=== PATIENT | female | born 1935 | race African-American/Black ===

== ENCOUNTER 2016-05-23 04:18 | Emergency (ER) | payer MEDICARE, OTHER ==
[~2016-05-23] VITALS: Ht 172.7 cm; Wt 81.0 kg
[~2016-05-23 04:18] MED LIST: AMLO10TA80 PO; ASPI-785; CALC-4 PO; CLOB60CR4 TP; DOCU-138 PO; FERR-63 PO; GLYB5TAB7 PO; LEVO100T9 PO; MECL-109 PO; MEMA10TA11 PO; METF1000; TRAM50TA3 PO
[2016-05-23] MEDS ORDERED: ONDANSETRON HCL 4MG/2ML VIAL IV STA (04:40)
[2016-05-23] MEDS ORDERED: MORPHINE SULFATE 4 MG/ML CPJ (NOT FOR IM USE) IV STA (04:40)
[2016-05-23 04:58] LABS: DIFFERENTIAL COMMENT 0; EOSINOPHILS % 5.2 % (0.0-5.0); HEMATOCRIT. 35.5 % (36.0-48.0); HEMOGLOBIN. 10.8 g/dL (12.0-16.0); LYMPHOCYTES % 10.5 % (20.0-50.0); MEAN CORPUSCULAR HEMOGLOBIN 21.5 pg (28.0-32.0); MEAN CORPUSCULAR HGB CONC 30.4 g/dL (31.0-37.0); MEAN CORPUSCULAR VOLUME 70.8 fL (81.0-99.0); MONOCYTES % 5.4 % (2.0-8.0); NEUTROPHILS % 77.9 % (40.0-76.0); PLATELET 299 x1000/uL (130-400); RED BLOOD CELL COUNT 5.01 mill/uL (4.2-5.4); RED CELL DISTRIBUTION WIDTH 20.2 % (11.6-14.6); WHITE BLOOD COUNT 10.8 x1000/uL (4.5-11.0)
[2016-05-23 05:01] LABS: CHLORIDE 100 mEq/L (98-107); INDEX HEMOLYSI 1 (1-3); INDEX ICTERIC 1 (1-4); INDEX LIPEMIC 1 (1-3)
[2016-05-23 05:09] LABS: ALANINE AMINOTRANSFERASE 12 IU/L (13-61); ALBUMIN 3.3 g/dL (3.4-5.0); ANION GAP 12; CALCIUM 9.1 mg/dL (8.5-10.1); CARBON DIOXIDE 34 mEq/L (21-32); UREA NITROGEN BLOOD 18 mg/dL (7-21); eGFR > 60 mL/min (>60)
[2016-05-23] MEDS ORDERED: HYDROCODONE/ACETAMINOPHEN 5/325MG TABLET PO ONE (06:30)
[2016-05-23] MEDS ORDERED: KETOROLAC 30MG/ML VIAL IV ONE (06:30)
[2016-05-23 06:59] LABS: CLARITY URINE CLEAR (CLEAR); COLOR URINE YELLOW (YELLOW); GLUCOSE URINE 1+ (NEGATIVE); KETONES URINE NEGATIVE (NEGATIVE); LEUKOCYTE ESTERASE URINE NEGATIVE (NEGATIVE); NITRITE URINE NEGATIVE (NEGATIVE); OCCULT BLOOD URINE NEGATIVE (NEGATIVE); PH URINE 7.5 (4.5-8.0); PROTEIN URINE TRACE (NEGATIVE); SPECIFIC GRAVITY URINE 1.012 (1.005-1.030); UROBILINOGEN URINE 0.2 E.U./dL (0.2-1.0)
[2016-05-23 07:16] LABS: SQUAMOUS EPITHELIAL CELL URINE FEW /lpf (RARE/1+)
[2016-05-23 07:26] LABS: BACTERIA URINE 3+; RBC URINE 0-2 /hpf (0-2)
[2016-05-23 08:00] VITALS: BP 173/87
[2016-05-23] MEDS ORDERED: LEVO125T8 PO (18:12)
[2016-05-23] MEDS ORDERED: ASPI-1035 PO (18:16)
== END 2016-05-23 08:15 | disposition home or self-care (01) ==
LOC: ER 04:55
DX: S30.0XXA Contusion of lower back and pelvis, initial encounter (principal); W01.0XXA Fall on same level from slipping, tripping and stumbling without subsequent striking against object, initial encounter; Y93.89 Activity, other specified; Y92.89 Other specified places as the place of occurrence of the external cause; M25.552 Pain in left hip; M25.551 Pain in right hip; N39.0 Urinary tract infection, site not specified; E11.65 Type 2 diabetes mellitus with hyperglycemia; I10 Essential (primary) hypertension; E86.0 Dehydration; E87.6 Hypokalemia; R00.0 Tachycardia, unspecified; D53.9 Nutritional anemia, unspecified; M47.896 Other spondylosis, lumbar region; Z79.82 Long term (current) use of aspirin; Z79.84 Long term (current) use of oral hypoglycemic drugs; Z79.899 Other long term (current) drug therapy
CPT/HCPCS: 36415; 72131; 73521; 80053; 81001; 85025; 85610; 93005; 96374; 96375; 99285; J1885; J2270; J2405

== ENCOUNTER 2016-05-23 09:50 | Inpatient (IN) | payer MEDICARE, OTHER ==
[~2016-05-23] VITALS: Ht 170.2 cm; Wt 88.5 kg
[2016-05-23] MEDS ORDERED: LORAZEPAM 2MG/ML CPJ IV PRN (13:15)
[2016-05-23] MEDS ORDERED: ACETAMINOPHEN 325MG TABLET PO PRN (13:15)
[2016-05-23] MEDS ORDERED: CLONIDINE 0.1MG TABLET PO PRN (13:15)
[2016-05-23] MEDS ORDERED: POTASSIUM CHLORIDE 40MEQ/30ML UDC PO ONE (13:15)
[2016-05-23] MEDS ORDERED: DIPHENHYDRAMINE 50MG/ML VIAL IV PRN (13:15)
[2016-05-23 13:17] LABS: HEMATOCRIT. 33.5 % (36.0-48.0); HEMOGLOBIN. 10.3 g/dL (12.0-16.0); MEAN CORPUSCULAR HEMOGLOBIN 21.8 pg (28.0-32.0); MEAN CORPUSCULAR HGB CONC 30.6 g/dL (31.0-37.0); MEAN CORPUSCULAR VOLUME 71.2 fL (81.0-99.0); MEAN PLATELET VOLUME 8.2 fl (7.4-10.4); PLATELET 286 x1000/uL (130-400); RED BLOOD CELL COUNT 4.71 mill/uL (4.2-5.4); RED CELL DISTRIBUTION WIDTH 20.3 % (11.6-14.6); WHITE BLOOD COUNT 10.7 x1000/uL (4.5-11.0)
[2016-05-23 13:22] LABS: CHLORIDE 100 mEq/L (98-107); INDEX HEMOLYSI 1 (1-3); INDEX ICTERIC 1 (1-4); INDEX LIPEMIC 1 (1-3)
[2016-05-23 13:27] LABS: DIFFERENTIAL COMMENT 1
[2016-05-23 13:31] LABS: ALANINE AMINOTRANSFERASE 11 IU/L (13-61); ALBUMIN 3.2 g/dL (3.4-5.0); ANION GAP 11; CALCIUM 9.1 mg/dL (8.5-10.1); CARBON DIOXIDE 35 mEq/L (21-32); UREA NITROGEN BLOOD 20 mg/dL (7-21); eGFR > 60 mL/min (>60)
[2016-05-23] MEDS ORDERED: POTASSIUM CHLORIDE 20MEQ TABLET SR PO NR (13:59)
[2016-05-23] MEDS: SODIUM CHLORIDE 0.45% 1,000 ML IV SCH (14:00)
[2016-05-23 14:26] LABS: ANISOCYTOSIS 2+; PLATELET ESTIMATE NORMAL
[2016-05-23 15:10] VITALS: BP_SYST 152; BP_SYST 154; BP_DIAS 71
[2016-05-23] MEDS ORDERED: NA PHOS,M-B/NA PHOS,DI-BA ENEMA 118ML PR PRN (15:45)
[2016-05-23] MEDS ORDERED: DEXTROSE 50% WATER 50ML SYRINGE IV PRN (15:45)
[2016-05-23] MEDS ORDERED: HYDROMORPHONE HCL/PF 2MG/ML CPJ IV PRN (15:45)
[2016-05-23] MEDS ORDERED: MAGNESIUM/ALUMINUM HYDROXIDE/SIMETHICONE 30ML UDC PO PRN (15:46)
[2016-05-23] MEDS ORDERED: GUAIFENESIN 200MG/10ML SUGAR FREE UDC PO PRN (15:48)
[2016-05-23] MEDS ORDERED: ONDANSETRON HCL 4MG/2ML VIAL IV PRN (15:48)
[2016-05-23] MEDS: ENOXAPARIN 40MG/0.4ML SYR SUBCUT SCH (16:46)
[2016-05-23] MEDS: BLOOD SUGAR DIAGNOSTIC STRIP TEST SCH ×2 (16:46→20:40)
[2016-05-23] MEDS: INSULIN LISPRO 100 UNITS/ML SUBCUT SCH ×2 (16:49→20:45)
[2016-05-23] MEDS ORDERED: MECLIZINE 25MG TABLET PO PRN (18:00)
[2016-05-23] MEDS ORDERED: LEVO125T8 PO (18:12)
[2016-05-23] MEDS ORDERED: ASPI-1035 PO (18:16)
[2016-05-23 20:00] VITALS: BP 146/77
[2016-05-23 23:36] VITALS: BP 140/91
[2016-05-24 00:22] VITALS: BP 140/91
[2016-05-24 04:00] VITALS: BP 132/70
[2016-05-24] MEDS: BLOOD SUGAR DIAGNOSTIC STRIP TEST SCH ×4 (06:22→20:14)
[2016-05-24] MEDS: INSULIN LISPRO 100 UNITS/ML SUBCUT SCH ×4 (06:22→20:58)
[2016-05-24] MEDS: LEVOTHYROXINE SODIUM 125MCG TABLET PO SCH (06:26)
[2016-05-24 06:56] LABS: BASOPHILS % 1.2 % (0.0-2.0); DIFFERENTIAL COMMENT 0; EOSINOPHILS % 6.2 % (0.0-5.0); HEMATOCRIT. 29.9 % (36.0-48.0); HEMOGLOBIN. 9.1 g/dL (12.0-16.0); LYMPHOCYTES % 17.4 % (20.0-50.0); MEAN CORPUSCULAR HEMOGLOBIN 21.4 pg (28.0-32.0); MEAN CORPUSCULAR HGB CONC 30.5 g/dL (31.0-37.0); MEAN CORPUSCULAR VOLUME 70.2 fL (81.0-99.0); MEAN PLATELET VOLUME 7.6 fl (7.4-10.4); MONOCYTES % 7.4 % (2.0-8.0); NEUTROPHILS % 67.8 % (40.0-76.0); PLATELET 276 x1000/uL (130-400); RED BLOOD CELL COUNT 4.25 mill/uL (4.2-5.4); RED CELL DISTRIBUTION WIDTH 20.5 % (11.6-14.6); WHITE BLOOD COUNT 6.6 x1000/uL (4.5-11.0)
[2016-05-24 08:00] VITALS: BP 131/84
[2016-05-24 08:19] LABS: ALANINE AMINOTRANSFERASE 8 IU/L (13-61); ALBUMIN 2.6 g/dL (3.4-5.0); ANION GAP 12; CALCIUM 8.5 mg/dL (8.5-10.1); CARBON DIOXIDE 31 mEq/L (21-32); CHLORIDE 101 mEq/L (98-107); HDL CHOLESTEROL 43 mg/dL (40-59); INDEX HEMOLYSI 1 (1-3); INDEX ICTERIC 1 (1-4); INDEX LIPEMIC 1 (1-3); LDL CHOLESTEROL 122 mg/dL (5-100); T4 FREE 1.29 ng/dL (0.76-1.46); TRIGLYCERIDE 181 mg/dL (0-150); UREA NITROGEN BLOOD 24 mg/dL (7-21); eGFR > 60 mL/min (>60)
[2016-05-24 08:21] LABS: THYROID STIMULATING HORMONE 0.82 uIU/mL (0.36-3.74)
[2016-05-24] MEDS: GLYBURIDE 5MG TABLET PO SCH ×2 (09:47→16:12)
[2016-05-24] MEDS: ASPIRIN 81MG EC TABLET PO SCH (09:48)
[2016-05-24] MEDS: AMLODIPINE 10MG TABLET PO SCH (09:48)
[2016-05-24] MEDS: CALCIUM CARBONATE/VITAMIN D3 500MG TABLET PO SCH ×2 (09:48→16:08)
[2016-05-24 12:00] VITALS: BP 132/79
[2016-05-24 16:00] VITALS: BP 136/63
[2016-05-24] MEDS: ENOXAPARIN 40MG/0.4ML SYR SUBCUT SCH (16:08)
[2016-05-24] MEDS: LEVOFLOXACIN 500MG TABLET PO SCH (18:16)
[2016-05-24] MEDS: HYDROCODONE/ACETAMINOPHEN 5/325MG TABLET PO PRN (18:17)
[2016-05-24 20:00] VITALS: BP 140/75
[2016-05-24] MEDS: SODIUM CHLORIDE 0.45% 1,000 ML IV SCH (21:28)
[2016-05-25] VITALS: BP 119/73
[2016-05-25 04:00] VITALS: BP 142/73
[2016-05-25] MEDS: HYDROCODONE/ACETAMINOPHEN 5/325MG TABLET PO PRN (06:11)
[2016-05-25] MEDS: BLOOD SUGAR DIAGNOSTIC STRIP TEST SCH ×4 (06:13→21:01)
[2016-05-25] MEDS: LEVOTHYROXINE SODIUM 125MCG TABLET PO SCH (06:14)
[2016-05-25] MEDS: INSULIN LISPRO 100 UNITS/ML SUBCUT SCH ×4 (06:22→21:08)
[2016-05-25] MEDS ORDERED: IOHEXOL-350 100 ML BOTTLE ONE (06:48)
[2016-05-25] MEDS ORDERED: SODIUM CHLORIDE 0.9% 10ML VIAL ONE (06:48)
[2016-05-25 06:56] LABS: DIFFERENTIAL COMMENT 0; EOSINOPHILS % 6.7 % (0.0-5.0); HEMOGLOBIN. 8.8 g/dL (12.0-16.0); LYMPHOCYTES % 15.1 % (20.0-50.0); MEAN CORPUSCULAR HEMOGLOBIN 22.1 pg (28.0-32.0); MEAN CORPUSCULAR HGB CONC 31.3 g/dL (31.0-37.0); MEAN CORPUSCULAR VOLUME 70.4 fL (81.0-99.0); MEAN PLATELET VOLUME 7.8 fl (7.4-10.4); MONOCYTES % 8.4 % (2.0-8.0); NEUTROPHILS % 68.8 % (40.0-76.0); PLATELET 261 x1000/uL (130-400); RED BLOOD CELL COUNT 3.98 mill/uL (4.2-5.4); RED CELL DISTRIBUTION WIDTH 20.2 % (11.6-14.6); WHITE BLOOD COUNT 6.4 x1000/uL (4.5-11.0)
[2016-05-25 07:26] LABS: ANION GAP 12; CALCIUM 8.4 mg/dL (8.5-10.1); CARBON DIOXIDE 30 mEq/L (21-32); CHLORIDE 102 mEq/L (98-107); INDEX HEMOLYSI 1 (1-3); INDEX ICTERIC 1 (1-4); INDEX LIPEMIC 1 (1-3); TROPONIN I < 0.02 ng/mL (0.00-0.04); UREA NITROGEN BLOOD 16 mg/dL (7-21); eGFR > 60 mL/min (>60)
[2016-05-25 08:00] VITALS: BP 130/89
[2016-05-25] MEDS: GLYBURIDE 5MG TABLET PO SCH ×2 (08:06→16:42)
[2016-05-25] MEDS: ASPIRIN 81MG EC TABLET PO SCH (08:06)
[2016-05-25] MEDS: CALCIUM CARBONATE/VITAMIN D3 500MG TABLET PO SCH ×2 (08:06→16:42)
[2016-05-25] MEDS: AMLODIPINE 10MG TABLET PO SCH (08:06)
[2016-05-25] MEDS ORDERED: POTASSIUM CHLORIDE 20MEQ TABLET SR PO NR (09:45)
[2016-05-25] MEDS: LEVOFLOXACIN 500MG TABLET PO SCH (10:35)
[2016-05-25 11:54] VITALS: BP 132/65
[2016-05-25 16:00] VITALS: BP 146/64
[2016-05-25 20:00] VITALS: BP 142/71
[2016-05-25] MEDS: ATORVASTATIN CALCIUM 10MG TABLET PO SCH (21:07)
[2016-05-26] VITALS: BP 136/72
[2016-05-26 04:00] VITALS: BP 154/74
[2016-05-26 06:05] LABS: D-DIMER 2.65 mg/L FEU (<0.50); PROTHROMBIN TIME 10.5 sec
[2016-05-26 06:29] LABS: ANION GAP 16; CALCIUM 8.9 mg/dL (8.5-10.1); CARBON DIOXIDE 28 mEq/L (21-32); CHLORIDE 100 mEq/L (98-107); INDEX HEMOLYSI 1 (1-3); INDEX ICTERIC 1 (1-4); INDEX LIPEMIC 1 (1-3); UREA NITROGEN BLOOD 12 mg/dL (7-21); eGFR > 60 mL/min (>60)
[2016-05-26] MEDS: BLOOD SUGAR DIAGNOSTIC STRIP TEST SCH ×4 (06:32→21:24)
[2016-05-26 06:38] LABS: BASOPHILS % 1.2 % (0.0-2.0); EOSINOPHILS % 2.7 % (0.0-5.0); HEMATOCRIT. 28.9 % (36.0-48.0); HEMOGLOBIN. 8.9 g/dL (12.0-16.0); LYMPHOCYTES % 13.2 % (20.0-50.0); MEAN CORPUSCULAR HEMOGLOBIN 21.7 pg (28.0-32.0); MEAN PLATELET VOLUME 8.3 fl (7.4-10.4); NEUTROPHILS % 74.9 % (40.0-76.0); PLATELET 278 x1000/uL (130-400); RED BLOOD CELL COUNT 4.13 mill/uL (4.2-5.4); RED CELL DISTRIBUTION WIDTH 20.7 % (11.6-14.6); WHITE BLOOD COUNT 7.2 x1000/uL (4.5-11.0)
[2016-05-26] MEDS: LEVOTHYROXINE SODIUM 125MCG TABLET PO SCH (06:40)
[2016-05-26] MEDS: INSULIN LISPRO 100 UNITS/ML SUBCUT SCH ×4 (06:42→21:34)
[2016-05-26 07:30] LABS: DIFFERENTIAL COMMENT 1
[2016-05-26 07:47] VITALS: BP 163/82
[2016-05-26] MEDS: AMLODIPINE 10MG TABLET PO SCH (08:20)
[2016-05-26] MEDS: ASPIRIN 81MG EC TABLET PO SCH (08:20)
[2016-05-26] MEDS: CALCIUM CARBONATE/VITAMIN D3 500MG TABLET PO SCH ×2 (08:20→17:15)
[2016-05-26] MEDS: GLYBURIDE 5MG TABLET PO SCH ×2 (08:23→17:15)
[2016-05-26] MEDS: LEVOFLOXACIN 500MG TABLET PO SCH (10:31)
[2016-05-26 11:53] VITALS: BP 147/71
[2016-05-26] MEDS: DOCUSATE SODIUM 100MG CAPSULE PO PRN (11:58)
[2016-05-26 16:00] VITALS: BP 137/71
[2016-05-26 19:04] LABS: CLARITY URINE CLEAR (CLEAR); COLOR URINE YELLOW (YELLOW); GLUCOSE URINE NEGATIVE (NEGATIVE); KETONES URINE 1+ (NEGATIVE); LEUKOCYTE ESTERASE URINE TRACE (NEGATIVE); NITRITE URINE NEGATIVE (NEGATIVE); OCCULT BLOOD URINE NEGATIVE (NEGATIVE); PH URINE 6.5 (4.5-8.0); PROTEIN URINE NEGATIVE (NEGATIVE); SPECIFIC GRAVITY URINE 1.019 (1.005-1.030)
[2016-05-26 20:01] VITALS: BP 132/75
[2016-05-26 20:54] LABS: BACTERIA URINE 2+; RBC URINE NONE SEEN /hpf (0-2); SQUAMOUS EPITHELIAL CELL URINE 1+ /lpf (RARE/1+); WBC URINE 0-2 /hpf (0-2)
[2016-05-26] MEDS: ATORVASTATIN CALCIUM 10MG TABLET PO SCH (21:32)
[2016-05-27] VITALS: BP 136/80
[2016-05-27 04:00] VITALS: BP 137/84
[2016-05-27] MEDS: BLOOD SUGAR DIAGNOSTIC STRIP TEST SCH ×2 (05:51→11:54)
[2016-05-27] MEDS: LEVOTHYROXINE SODIUM 125MCG TABLET PO SCH (06:22)
[2016-05-27] MEDS: INSULIN LISPRO 100 UNITS/ML SUBCUT SCH ×2 (06:24→11:57)
[2016-05-27] MEDS: DOCUSATE SODIUM 100MG CAPSULE PO PRN (06:44)
[2016-05-27 07:39] LABS: BASOPHILS % 0.9 % (0.0-2.0); EOSINOPHILS % 2.9 % (0.0-5.0); HEMATOCRIT. 30.4 % (36.0-48.0); HEMOGLOBIN. 9.4 g/dL (12.0-16.0); LYMPHOCYTES % 15.1 % (20.0-50.0); MEAN CORPUSCULAR HEMOGLOBIN 21.5 pg (28.0-32.0); MEAN CORPUSCULAR VOLUME 69.5 fL (81.0-99.0); MEAN PLATELET VOLUME 8.7 fl (7.4-10.4); MONOCYTES % 7.1 % (2.0-8.0); PLATELET 299 x1000/uL (130-400); RED BLOOD CELL COUNT 4.37 mill/uL (4.2-5.4); RED CELL DISTRIBUTION WIDTH 20.5 % (11.6-14.6); WHITE BLOOD COUNT 6.8 x1000/uL (4.5-11.0)
[2016-05-27 07:40] LABS: ANION GAP 13; CARBON DIOXIDE 31 mEq/L (21-32); CHLORIDE 101 mEq/L (98-107); INDEX HEMOLYSI 1 (1-3); INDEX ICTERIC 1 (1-4); INDEX LIPEMIC 1 (1-3); TROPONIN I < 0.02 ng/mL (0.00-0.04); UREA NITROGEN BLOOD 13 mg/dL (7-21); eGFR > 60 mL/min (>60)
[2016-05-27 08:00] VITALS: BP 123/62
[2016-05-27 08:35] LABS: DIFFERENTIAL COMMENT 1
[2016-05-27] MEDS: ASPIRIN 81MG EC TABLET PO SCH (08:41)
[2016-05-27] MEDS: CALCIUM CARBONATE/VITAMIN D3 500MG TABLET PO SCH (08:41)
[2016-05-27] MEDS: AMLODIPINE 10MG TABLET PO SCH (08:41)
[2016-05-27] MEDS: GLYBURIDE 5MG TABLET PO SCH (08:43)
[2016-05-27] MEDS: LEVOFLOXACIN 500MG TABLET PO SCH (11:57)
[2016-05-27 12:00] VITALS: BP 132/68
[2016-05-27] MEDS: HYDROCODONE/ACETAMINOPHEN 5/325MG TABLET PO PRN (13:33)
[2016-05-27 14:54] VITALS: BP 132/68
[2016-05-27 16:00] VITALS: BP 113/64
[2016-05-28] MEDS ORDERED: LIDOCAINE 5% PATCH TOP SCH (09:00)
== END 2016-05-27 18:10 | DRG 73 ==
LOC: ER 09:50 → 8WST 13:03
PROVIDERS: ADMIT Internal Medicine; ATTEND Internal Medicine
DX: G90.9 Disorder of the autonomic nervous system, unspecified (principal); G93.40 Encephalopathy, unspecified; E46 Unspecified protein-calorie malnutrition; E86.0 Dehydration; D64.9 Anemia, unspecified; E03.9 Hypothyroidism, unspecified; R26.9 Unspecified abnormalities of gait and mobility; E11.42 Type 2 diabetes mellitus with diabetic polyneuropathy; E11.65 Type 2 diabetes mellitus with hyperglycemia; E78.00 Pure hypercholesterolemia, unspecified; E78.5 Hyperlipidemia, unspecified; E87.6 Hypokalemia; F17.210 Nicotine dependence, cigarettes, uncomplicated; F39 Unspecified mood [affective] disorder; G31.84 Mild cognitive impairment of uncertain or unknown etiology; I11.9 Hypertensive heart disease without heart failure; I25.10 Atherosclerotic heart disease of native coronary artery without angina pectoris; I27.2 Other secondary pulmonary hypertension; J44.9 Chronic obstructive pulmonary disease, unspecified; I34.0 Nonrheumatic mitral (valve) insufficiency; K59.00 Constipation, unspecified; R26.81 Unsteadiness on feet; W18.30XA Fall on same level, unspecified, initial encounter; M19.90 Unspecified osteoarthritis, unspecified site; R32 Unspecified urinary incontinence; Z79.82 Long term (current) use of aspirin; Z79.899 Other long term (current) drug therapy; Z90.710 Acquired absence of both cervix and uterus; Z72.89 Other problems related to lifestyle; Y92.009 Unspecified place in unspecified non-institutional (private) residence as the place of occurrence of the external cause; Y93.89 Activity, other specified; Y99.8 Other external cause status; Z68.30 Body mass index [BMI] 30.0-30.9, adult
CPT/HCPCS: 36415; 70450; 70551; 71275; 72141; 72146; 72148; 73522; 80048; 80053; 80061; 81001; 82962; 84439; 84443; 84484; 85025; 85379; 85610; 85730; 87086; 93005; 93306; 93880; 93970; 97162; 97166; 99285; A4216; A6261; J1650; J1815; J7030; J7040; J8597; Q9967